=== PATIENT | female | born 1950 | race Caucasian/White ===

== ENCOUNTER 2023-12-08 02:53 | Day surgery (SDC) | payer MEDICARE, OTHER ==
[~2023-12-08 02:53] MED LIST: ASCO500 PO; BALANCED B-100100 MG PO; FOSAMAX70 MG PO; LEFLUNOMIDE20 M2 PO; LOSARTAN-HCTZ1 EAC5 PO; MERIBIN5 MG PO; PROBIOTIC1 EA14 PO; VITAMIN D5000 UNIT PO
[2023-12-08 09:05] VITALS: BP 146/65
[2023-12-08] MEDS ORDERED: INFLIXIMAB ABDA IV SCH (09:15)
[2023-12-08] MEDS ORDERED: NS IV SCH (09:15)
[2023-12-08 09:58] VITALS: BP 135/69
[2023-12-08 10:13] VITALS: BP 138/54
[2023-12-08 10:25] VITALS: BP 137/52
[2023-12-08 10:42] VITALS: BP 142/56
[2023-12-08 11:10] VITALS: BP 141/50
== END 2023-12-08 11:40 | disposition home or self-care (01) ==
LOC: ATC 02:53
DX: M05.741 Rheumatoid arthritis with rheumatoid factor of right hand without organ or systems involvement (principal); Z79.899 Other long term (current) drug therapy
CPT/HCPCS: 96413; 96415; J7050; Q5104

== ENCOUNTER → 2024-01-28 | Outpatient (CLI) | payer MEDICARE, OTHER | END | disposition home or self-care (01) | LOC: LAB 15:24 → LAB SHORT 15:24 | DX: N39.0 Urinary tract infection, site not specified (principal) | CPT/HCPCS: 87077; 87086; 87186 ==

== ENCOUNTER 2024-03-01 03:19 | Day surgery (SDC) | payer MEDICARE, OTHER ==
[~2024-03-01] VITALS: Wt 78.5 kg
[2024-03-01 13:50] VITALS: BP 154/66
[2024-03-01] MEDS ORDERED: INFLIXIMAB ABDA IV SCH (14:00)
[2024-03-01] MEDS ORDERED: NS IV SCH (14:00)
== END 2024-03-01 16:25 | disposition home or self-care (01) ==
LOC: ATC 03:19
DX: M05.741 Rheumatoid arthritis with rheumatoid factor of right hand without organ or systems involvement (principal); Z79.899 Other long term (current) drug therapy
CPT/HCPCS: 96413; 96415; J7050; Q5104

== ENCOUNTER 2024-04-26 01:49 | Day surgery (SDC) | payer MEDICARE, OTHER ==
[2024-04-26 14:11] VITALS: BP 113/49
[2024-04-26] MEDS ORDERED: NS IV SCH (14:20)
[2024-04-26] MEDS ORDERED: INFLIXIMAB ABDA IV SCH (14:20)
== END 2024-04-26 16:45 | disposition home or self-care (01) ==
LOC: ATC 01:49
DX: M05.741 Rheumatoid arthritis with rheumatoid factor of right hand without organ or systems involvement (principal); Z79.899 Other long term (current) drug therapy
CPT/HCPCS: 96413; 96415; J7050; Q5104

== ENCOUNTER 2024-07-09 02:12 | Day surgery (SDC) | payer MEDICARE, OTHER ==
[~2024-07-09] VITALS: Wt 81.0 kg
[2024-07-09 09:05] VITALS: BP 129/43
[2024-07-09] MEDS ORDERED: INFLIXIMAB ABDA IV SCH (09:10)
[2024-07-09] MEDS ORDERED: NS IV SCH (09:10)
== END 2024-07-09 11:58 | disposition home or self-care (01) ==
LOC: ATC 02:12
DX: M05.79 Rheumatoid arthritis with rheumatoid factor of multiple sites without organ or systems involvement (principal)
CPT/HCPCS: 96413; 96415; J7050; Q5104

== ENCOUNTER 2024-09-27 02:42 | Day surgery (SDC) | payer MEDICARE, OTHER ==
[~2024-09-27] VITALS: Wt 79.0 kg
[2024-09-27 13:51] VITALS: BP 144/56
[2024-09-27] MEDS ORDERED: NS IV SCH (14:10)
[2024-09-27] MEDS ORDERED: INFLIXIMAB ABDA IV SCH (14:10)
== END 2024-09-27 16:40 | disposition home or self-care (01) ==
LOC: ATC 02:42
DX: M05.741 Rheumatoid arthritis with rheumatoid factor of right hand without organ or systems involvement (principal); Z79.83 Long term (current) use of bisphosphonates; Z79.899 Other long term (current) drug therapy; Z88.5 Allergy status to narcotic agent
CPT/HCPCS: 96413; 96415; J7050; Q5104

== ENCOUNTER 2024-11-26 08:10 | Day surgery (SDC) | payer MEDICARE, OTHER ==
[~2024-11-26] VITALS: Wt 77.8 kg
[2024-11-26 09:02] VITALS: BP 134/50
[2024-11-26] MEDS ORDERED: INFLIXIMAB ABDA IV SCH (09:05)
[2024-11-26] MEDS ORDERED: NS IV SCH (09:05)
[2024-11-26 11:34] VITALS: BP 151/71
== END 2024-11-26 11:39 | disposition home or self-care (01) ==
LOC: ATC 08:10
DX: M05.741 Rheumatoid arthritis with rheumatoid factor of right hand without organ or systems involvement (principal); D84.821 Immunodeficiency due to drugs; D50.9 Iron deficiency anemia, unspecified; M05.761 Rheumatoid arthritis with rheumatoid factor of right knee without organ or systems involvement; M05.762 Rheumatoid arthritis with rheumatoid factor of left knee without organ or systems involvement; M79.671 Pain in right foot; M79.672 Pain in left foot; Z79.83 Long term (current) use of bisphosphonates; Z79.899 Other long term (current) drug therapy
CPT/HCPCS: 36415; 80053; 85025; 85651; 86140; 96413; 96415; J7050; Q5104

== ENCOUNTER 2025-03-18 00:16 | Day surgery (SDC) | payer MEDICARE, OTHER ==
[~2025-03-18] VITALS: Wt 78.8 kg
[2025-03-18 09:00] VITALS: BP 171/62
[2025-03-18] MEDS ORDERED: INFLIXIMAB ABDA IV SCH (09:00)
[2025-03-18] MEDS ORDERED: NS IV SCH (09:00)
[2025-03-18] MEDS ORDERED: RAYOS PO (09:03)
== END 2025-03-18 11:30 | disposition home or self-care (01) ==
LOC: ATC 00:16
DX: M05.741 Rheumatoid arthritis with rheumatoid factor of right hand without organ or systems involvement (principal); Z79.1 Long term (current) use of non-steroidal anti-inflammatories (NSAID); Z79.899 Other long term (current) drug therapy
CPT/HCPCS: 96413; 96415; J7050; Q5104

== ENCOUNTER 2025-07-17 00:32 | Day surgery (SDC) | payer MEDICARE, OTHER ==
[~2025-07-17] VITALS: Wt 82.8 kg
[~2025-07-17 00:32] MED LIST changes: +RAYOS PO
[2025-07-17 07:55] VITALS: BP 147/64
[2025-07-17] MEDS ORDERED: AMLODIPINE BESYL5 MG PO (08:00)
[2025-07-17] MEDS ORDERED: INFLIXIMAB ABDA IV SCH (08:10)
[2025-07-17] MEDS ORDERED: NS IV SCH (08:10)
== END 2025-07-17 10:29 | disposition home or self-care (01) ==
LOC: ATC 00:32
DX: M05.741 Rheumatoid arthritis with rheumatoid factor of right hand without organ or systems involvement (principal); M81.0 Age-related osteoporosis without current pathological fracture; Z79.83 Long term (current) use of bisphosphonates
CPT/HCPCS: 96413; 96415; J7050; Q5104